=== PATIENT | male | born 1970 | race Caucasian/White ===

== ENCOUNTER 2025-02-27 08:57 | Inpatient (IN) | payer OTHER ==
[2025-02-27 09:16] VITALS: BMI 34.9
[2025-02-27] MEDS ORDERED: ONDANSETRON *ODT* 4 MG TABLET SL PRN (13:02)
[2025-02-27] MEDS ORDERED: ACETAMINOPHEN 325 MG TABLET (FP) PO PRN (13:02)
[2025-02-27] MEDS ORDERED: IBUPROFEN 400 MG TABLET (FP) PO PRN (13:02)
[2025-02-27] MEDS ORDERED: BISMUTH SUBSALICYLATE 524 MG/30 ML PO PRN (13:02)
[2025-02-27] MEDS ORDERED: guaiFENesin 600 MG TABLET.ER (FP) PO PRN (13:02)
[2025-02-27] MEDS ORDERED: BENZOCAINE/MENTHOL (CHLORASEPTIC ) LOZENGE MM PRN (13:02)
[2025-02-27] MEDS ORDERED: BENZONATATE 200 MG CAPSULE PO PRN (13:02)
[2025-02-27] MEDS ORDERED: LORazepam 1 MG TABLET PO PRN (13:02)
[2025-02-27] MEDS ORDERED: NALOXONE (NARCAN) HCL 4 MG/0.1 ML SPRAY NS PRN (13:02)
[2025-02-27] MEDS ORDERED: DICYCLOMINE HCL 10 MG CAPSULE PO PRN (13:02)
[2025-02-27] MEDS ORDERED: MAGNESIUM HYDROX 2400MG/30ML ORAL SUSPENSION 30 ML CUP PO PRN (13:02)
[2025-02-27] MEDS ORDERED: MAG HYDROX/AL HYDROX/SIMETH 30 ML UNIT-DOSE CUP PO PRN (13:02)
[2025-02-27] MEDS ORDERED: LOPERAMIDE HCL 2 MG CAPSULE PO PRN (13:02)
[2025-02-27] MEDS ORDERED: POLYETHYLENE GLYCOL (HEALTHYLAX) 3350 17 GM PACKET PO PRN (13:02)
[2025-02-27] MEDS: PRENATAL VITAMINS W/ FOLIC ACID TABLET (FP) PO SCH (14:26)
[2025-02-27] MEDS: NICOTINE 14 MG/24 HOURS TOPICAL PATCH TD SCH (14:26)
[2025-02-27] MEDS: LORazepam 2 MG TABLET PO SCH (17:36)
[2025-02-27] MEDS: THIAMINE 100 MG TABLET PO SCH (22:14)
[2025-02-27] MEDS: MELATONIN 5 MG TABLETS PO SCH (22:14)
[2025-02-28] MEDS: methaDONE HCL 40 MG DISPERSABLE TABLET PO SCH (08:56)
[2025-02-28 10:52] LABS: HEMATOCRIT 40.9 % (40.1-51.0); HEMOGLOBIN 13.3 g/dL (13.7-17.5); MCHC 32.5 g/dl (32.3-36.5); MEAN CELL VOLUME 88.7 fl (79.0-92.2); PLATELET COUNT 159 x10^3/uL (163-337)
[2025-02-28 11:02] LABS: CHLORIDE 106 mmol/L (98-107); POTASSIUM 3.9 mmol/L (3.5-5.1); SODIUM 139 mmol/L (136-145)
[2025-02-28 11:08] LABS: CALCIUM 8.8 mg/dL (8.5-10.1)
[2025-02-28 11:09] LABS: ALBUMIN 3.4 g/dl (3.4-5.0); ANION GAP 6 mmol/L (4-13); BLOOD UREA NITROGEN 10.6 mg/dL (7-18); CO2 27 mmol/L (21-32); GLUCOSE,RANDOM 121 mg/dL (74-106)
[2025-02-28 11:12] LABS: CREATININE 0.8 mg/dL (0.55-1.3); SGOT/AST 105 U/L (15-37); SGPT/ALT 298 U/L (13-61)
[2025-02-28 11:13] LABS: BILIRUBIN,TOTAL 0.4 mg/dL (0.2-1); TOT PROT 6.9 g/dl (6.4-8.2)
[2025-02-28 11:15] LABS: ALK PHOS 159 U/L (45-117)
[2025-02-28] MEDS: LORazepam 1 MG TABLET PO SCH (19:35)
[2025-02-28] MEDS: QUEtiapine FUMARATE 100 MG TABLET (FP) PO SCH (22:44)
[2025-03-01] MEDS: LORazepam 1 MG TABLET PO SCH (05:46)
[2025-03-01] MEDS: hydrOXYzine PAMOATE 25 MG CAPSULE (FP) PO PRN (10:01)
[2025-03-02] MEDS ORDERED: LORazepam 0.5 MG TABLET PO PRN
[2025-03-02] MEDS: LORazepam 0.5 MG TABLET PO SCH (05:43)
[2025-03-02 10:02] LABS: ALBUMIN 3.5 g/dl (3.4-5.0)
[2025-03-02 10:05] LABS: BILIRUBIN,DIRECT 0.1 mg/dL (0.0-0.2)
[2025-03-02 10:07] LABS: TOT PROT 7.1 g/dl (6.4-8.2)
[2025-03-02 10:08] LABS: BILIRUBIN,TOTAL 0.3 mg/dL (0.2-1)
[2025-03-02] MEDS: IBUPROFEN 600 MG TABLET (FP) PO PRN (16:55)
[2025-03-03] MEDS: LORazepam 0.5 MG TABLET PO ONE (06:00)
[2025-03-03] MEDS: methaDONE HCL 40 MG DISPERSABLE TABLET PO SCH (09:52)
[2025-03-03] MEDS: levETIRAcetam 500 MG TABLET (FP) PO SCH (09:53)
[2025-03-03] MEDS: APIXABAN 5 MG TABLET PO SCH (13:25)
[2025-03-03] MEDS: METHOCARBAMOL 500 MG TABLET PO PRN (17:49)
[2025-03-04 12:41] VITALS: BP 106/65; PULSE 67; RESP 16; TEMP 97.6
[2025-03-04] MEDS ORDERED: CEPHALEXIN MONOHYDRATE 500 MG CAPSULE (UD) PO SCH (18:00)
== END 2025-03-04 14:08 | disposition other institution (70) | DRG 773 ==
LOC: YASAS 08:57 → Y6N 13:21
PROVIDERS: ADMIT Allergy & Immunology; ATTEND Family Medicine Addiction Medicine
PROC: HZ2ZZZZ Detoxification Services for Substance Abuse Treatment (ICD-10-PCS; principal; 2025-02-27)
DX: F10.230 Alcohol dependence with withdrawal, uncomplicated (principal); F11.20 Opioid dependence, uncomplicated; F13.20 Sedative, hypnotic or anxiolytic dependence, uncomplicated; F14.20 Cocaine dependence, uncomplicated; F17.210 Nicotine dependence, cigarettes, uncomplicated; F31.9 Bipolar disorder, unspecified; F41.9 Anxiety disorder, unspecified; R60.0 Localized edema; R74.8 Abnormal levels of other serum enzymes; Z86.711 Personal history of pulmonary embolism; Z86.718 Personal history of other venous thrombosis and embolism; Z79.01 Long term (current) use of anticoagulants; Z87.19 Personal history of other diseases of the digestive system
CPT/HCPCS: 36415; 71045-TC-FY; 80053; 80076; 80307; 82140; 83880; 85027; 86780; 87811; 93005; 93010